=== PATIENT | female | born 1960 | race Caucasian/White ===

== ENCOUNTER 2018-06-09 17:30 | Emergency (ER) | payer SELFPAY ==
--- NOTE | 2018-06-09 17:51 | ER Document Report ---
ED Medical Screen (RME) - General Chief Complaint: Dog Bite Stated Complaint: LEFT ARM LACERATION/DOG BITE Time Seen by Provider: 06/09/18 17:46 Notes: Patient is a 57 year old female that presents to the emergency department for chief complaint of dog bite to the left arm and right thumb. Patient states that she was trying to separate 2 dogs that were fighting, and ended up being bit in her left forearm, left hand, and right thumb. This occurred within the hour of arriving to the emergency department. Does not know last time she had tetanus vaccination. Both dogs are known to the family and her family dogs, and up-to-date with rabies vaccinations.. ROS: Other than noted above, the 12 point review of systems was reviewed with the patient and were negative, all pertinent findings are included in the HPI. PHYSICAL EXAMINATION: Vital signs reviewed. GENERAL: Well-appearing, well-nourished and in no acute distress. HEAD: Atraumatic, normocephalic. EYES: Pupils equal round extraocular movements intact, conjunctiva are normal. ENT: Nares patent NECK: Normal range of motion CV: Heart regular rate and rhythm LUNGS: No respiratory distress Musculoskeletal: No apparent tendon injury on my exam, patient does have a deep wound to the left forearm, as well as several smaller puncture wounds, she has abrasions to the left hand, and the distal two thirds of her right thumbnail has been removed. There is ecchymosis and bruising and pain with flexion of the right thumb. NEUROLOGICAL: Normal speech PSYCH: Normal mood, normal affect. MDM: Patient seen and examined for rapid initial assessment. Vital signs reviewed. A comprehensive ED assessment and evaluation of the patient, analysis of test results and completion of the medical decision making process will be conducted by additional ED providers. *Note is created using voice recognition software and may contain spelling, syntax or grammatical errors. TRAVEL OUTSIDE OF THE [place] IN LAST 30 DAYS: No - Related Data Allergies/Adverse Reactions: cephalexin [From Keflex] Allergy (Verified 06/09/18 17:37) Physical Exam - Vital signs Vitals: Temp Pulse Resp BP Pulse Ox 97.9 F 95 18 159/99 H 94 06/09/18 17:41 06/09/18 17:41 06/09/18 17:41 06/09/18 17:41 06/09/18 17:41 Course - Vital Signs Vital signs: Temp Pulse Resp BP Pulse Ox 97.9 F 95 18 159/99 H 94 06/09/18 17:41 06/09/18 17:41 06/09/18 17:41 06/09/18 17:41 06/09/18 17:41
[2018-06-09] MEDS ORDERED: LIDOCAINE 1% INJ-PF (10 MG/ML) 30 ML SDV INJ ONE (17:52)
[2018-06-09] MEDS ORDERED: DIPH/PERTUSS(ACELL)/TETANUS VAC/PF 0.5 ML SYR (>=10YO) IM ONE (17:52)
[2018-06-09] MEDS ORDERED: NAPROXEN 250 MG TABLET PO ONE (17:53)
--- NOTE | 2018-06-09 18:28 | RADIOLOGY REPORT (SQ) ---
EXAM DESCRIPTION: FOREARM LEFT COMPLETED DATE/TIME: 06/09/2018 6:14 pm REASON FOR STUDY: dog bite to forearm COMPARISON: None. NUMBER OF VIEWS: Two views. TECHNIQUE: Two radiographic images acquired of the left forearm, including elbow and wrist in at [address] one projection. LIMITATIONS: None. FINDINGS: MINERALIZATION: Normal. BONES: No acute fracture. No worrisome bone lesions. SOFT TISSUES: Laceration mid forearm. OTHER: No other significant finding. IMPRESSION: Laceration. No osseous abnormality. TECHNICAL DOCUMENTATION: JOB ID: [id number] [employer]- All Rights Reserved Reading location - IP/workstation name: [email or web address]
--- NOTE | 2018-06-09 18:29 | RADIOLOGY REPORT (SQ) ---
EXAM DESCRIPTION: HAND RIGHT 3 VIEWS COMPLETED DATE/TIME: 06/09/2018 6:14 pm REASON FOR STUDY: dog bite to thumb COMPARISON: None. EXAM PARAMETERS: NUMBER OF VIEWS: Three views. TECHNIQUE: AP, lateral and oblique radiographic images acquired of the right hand. LIMITATIONS: None. FINDINGS: MINERALIZATION: Normal. BONES: No acute fracture or dislocation. No worrisome bone lesions. JOINTS: No effusions. SOFT TISSUES: No soft tissue swelling. No foreign body. OTHER: No other significant finding. IMPRESSION: NEGATIVE STUDY OF THE RIGHT HAND. NO RADIOGRAPHIC EVIDENCE OF ACUTE INJURY. TECHNICAL DOCUMENTATION: JOB ID: [id number] [employer]- All Rights Reserved Reading location - IP/workstation name: [email or web address]
--- NOTE | 2018-06-09 18:39 | ER Document Report ---
ED Animal Bite - General Chief Complaint: Dog Bite Stated Complaint: LEFT ARM LACERATION/DOG BITE Time Seen by Provider: 06/09/18 18:39 Mode of Arrival: Ambulatory Information source: Patient Notes: HISTORY OF PRESENT ILLNESS: Patient is a 57-year-old female with no significant past medical history who presents with dog bite to the left forearm as well as multiple other injuries after the patient attempted to "break my dogs up from fighting." She reports both animals or pets and have been fully vaccinated. She is unsure of her last tetanus shot. Location: Right hand, left forearm Onset: Sudden prior to arrival Provocation: Movement Quality: Burning Radiation: None Severity: Mild Timing: Constant Associated symptoms: No fevers or chills, no numbness/tingling of the extremities, no weakness of the extremities REVIEW OF SYSTEMS: CONSTITUTIONAL : Denies fever or chills, no sweats. Denies recent illness. EENT: Denies eye, ear, throat, or mouth pain or symptoms. Denies nasal or sinus congestion. CARDIOVASCULAR: Denies chest pain. RESPIRATORY: Denies cough, cold, or chest congestion. Denies shortness of breath, difficulty breathing, or wheezing. GASTROINTESTINAL: Denies abdominal pain. Denies nausea, vomiting, or diarrhea. Denies constipation. GENITOURINARY: Denies difficulty urinating, painful urination, burning, frequency, or blood in urine. Denies vaginal bleeding, abnormal or irregular periods. MUSCULOSKELETAL: Positive for dog bites to the right hand and left forearm. Denies neck or back pain or joint pain or swelling. SKIN: Denies rash or skin lesions. HEMATOLOGIC : Denies easy bruising or bleeding. LYMPHATIC: Denies swollen, enlarged glands. NEUROLOGICAL: Denies altered mental status or loss of consciousness. Denies headache. Denies weakness or paralysis or loss of use of either side. Denies problems with gait or speech. Denies sensory or motor loss. PSYCHIATRIC: Denies anxiety or stress or depression. All other systems reviewed and negative. PHYSICAL EXAMINATION: GENERAL: Well-appearing, well-nourished and in no acute distress. HEAD: Atraumatic, normocephalic. No scalp deformity, depression, or crepitance. EYES: Pupils are 3 mm and equal/round/reactive to light, extraocular movements intact, sclera anicteric, conjunctiva are normal. ENT: Nares patent bilaterally, oropharynx clear without exudates or palatal petechia. Moist mucous membranes. No tonsil hypertrophy. NECK: Normal range of motion, supple without lymphadenopathy. LUNGS: Breath sounds present, equal, and clear to auscultation bilaterally. No wheezes, rales, or rhonchi. HEART: Regular rate and rhythm without murmurs, rubs, or gallops. 2+ peripheral pulses. Normal capillary refill. ABDOMEN: Soft, nontender, nondistended. Normoactive bowel sounds. No guarding, no rebound. No masses appreciated. BACK: Normal contour, no midline tenderness. Rectal exam deferred. PELVC: Deferred. EXTREMITIES: Multiple abrasions and puncture wounds to the right hand as well as the right second finger with a traumatically absent right second fingernail, bleeding is controlled. 4-5 cm linear laceration to the proximal left forearm on the ulnar side, bleeding controlled, no visible foreign bodies, small amount of subcutaneous fat protruding from the defect. Normal range of motion, no pitting or edema. No cyanosis. NEUROLOGICAL: No focal neurological deficits. Moves all extremities spontaneously and on command. PSYCH: Normal mood, normal affect. No suicidal thoughts/ideations. No homocidal thoughts/ideations. No hallucinations. SKIN: Warm, dry, normal turgor, no rashes or lesions noted. ASSESSMENT AND PLAN: This patient is a 57-year-old female who presents with dog bite to the right hand and left forearm. Patient is right-hand dominant. 1. Will will be given tetanus booster and oral doxycycline given her allergy to Keflex. 2. Will irrigate wounds and clean/dress, will place 2 to 3 sutures to the left forearm laceration given size to loosely approximate the edges and still allow for drainage. TRAVEL OUTSIDE OF THE [place] IN LAST 30 DAYS: No - Related Data Allergies/Adverse Reactions: cephalexin [From Keflex] Allergy (Verified 06/09/18 17:37) Past Medical History - General Information source: Patient - Social History Smoking Status: Never Smoker Chew tobacco use (# tins/day): No Frequency of alcohol use: None Drug Abuse: None Lives with: Family Family History: Reviewed & Not Pertinent Patient has suicidal ideation: No Patient has homicidal ideation: No - Past Medical History Cardiac Medical History: Reports: None Pulmonary Medical History: Reports: None EENT Medical History: Reports: None Neurological Medical History: Reports: None Endocrine Medical History: Reports: None Renal/ Medical History: Reports: None. Denies: Hx Peritoneal Dialysis Malignancy Medical History: Reports: None GI Medical History: Reports: None Musculoskeletal Medical History: Reports None Skin Medical History: Reports None Psychiatric Medical History: Reports: None Traumatic Medical History: Reports: None Infectious Medical History: Reports: None Past Surgical History: Reports: Hx Abdominal Surgery - hernia repair - Immunizations Immunizations up to date: Yes Hx Diphtheria, Pertussis, Tetanus Vaccination: Yes History of Influenza Vaccine for 01/2017 - 06/2017 Season: Yes Physical Exam - Vital signs Vitals: Temp Pulse Resp BP Pulse Ox 97.9 F 95 18 159/99 H 94 06/09/18 17:41 06/09/18 17:41 06/09/18 17:41 06/09/18 17:41 06/09/18 17:41 Course - Re-evaluation Re-evalutation: 06/09/18 22:37 Patient has had two 4-0 Prolene horizontal mattress sutures to loosely approximate the left forearm laceration, please see procedure note for details. Patient will be discharged home with return precautions and follow-up. Patient voices both understanding and agreement with the plan. - Vital Signs Vital signs: Temp Pulse Resp BP Pulse Ox 97.9 F 95 18 159/99 H 94 06/09/18 17:41 06/09/18 17:41 06/09/18 17:41 06/09/18 17:41 06/09/18 17:41 - Diagnostic Test Radiology reviewed: Image reviewed, Reports reviewed Procedures - Laceration/Wound Repair Left Medial Arm Time completed: 22:27 Wound length (cm): 5 Wound's Depth, Shape: Superficial, Linear Laceration pre-procedure: Betadine prep applied, Shur-Clens applied Anesthetic type: 1% Lidocaine Volume Anesthetic (mLs): 5 Wound explored: Clean, No foreign body removed Irrigated w/ Saline (mLs): 250 Wound Repaired With: Sutures Suture Size/Type: 4:0, Prolene Number of Sutures: 2 Post-procedure wound care: Sterile dressing applied Post-procedure NV exam normal: Yes Complications: No Discharge - Discharge Clinical Impression: Dog bite of arm Qualifiers: Encounter type: initial encounter Laterality: left Qualified Code(s): S41.152A - Open bite of left upper arm, initial encounter; W54.0XXA - Bitten by dog, initial encounter Condition: Good Disposition: HOME, SELF-CARE Instructions: Animal Bites ([facility]), Family Physicians / Practices Additional Instructions: You have been evaluated in the Emergency Department for a dog bite that was loosely sewn together to allow for drainage but still help facilitate wound healing. While here, you had x-rays that were normal and it is now safe to be discharged home. Please follow-up with your primary physician as instructed in 7-10 days to have the area rechecked and have the stitches removed. Return to the Emergency Department if you experience high fevers, swelling of the arm, drainage from your wound, or any other concerning symptoms. Prescriptions: Diclofenac Sodium 75 mg PO BID #30 tablet. Doxycycline Hyclate 100 mg PO BID #20 capsule Print Language: Pashto
[2018-06-09] MEDS ORDERED: HYDROCODONE/ACETAMINOPHEN 5-325 MG TABLET PO ONE (19:15)
[2018-06-09] MEDS ORDERED: DOXYCYCLINE HYCLATE 100 MG TABLET PO ONE (19:15)
[2018-06-09 22:52] VITALS: BP 138/74
== END 2018-06-09 22:52 | disposition home or self-care (01) ==
LOC: ER 17:30
PROC: 0HQEXZZ Repair Left Lower Arm Skin, External Approach (ICD-10-PCS; principal; 2018-06-09)
DX: S41.152A Open bite of left upper arm, initial encounter (principal); M79.642 Pain in left hand; X58.XXXA Exposure to other specified factors, initial encounter
CPT/HCPCS: 99283; 90471; 73090; 73130; 90715; 12002; J3490

== ENCOUNTER 2018-06-23 13:11 | Emergency (ER) | payer OTHER ==
[2018-06-23 14:32] VITALS: BP 145/92
--- NOTE | 2018-06-23 14:32 | ER Document Report ---
ED Suture/Wound Recheck - General Chief Complaint: Suture Removal Stated Complaint: SUTURE REMOVAL Time Seen by Provider: 06/23/18 14:30 Primary Care Provider: Wound Care [Provider Group] - Follow up as needed Mode of Arrival: Ambulatory Information source: Patient Notes: 57-year-old female presented to ED for suture removal from her left arm. She states that her dog bit her in the laceration was sutured and she has taken her antibiotics as instructed. There is no redness drainage or inflammation to the site. There is a lumpy feeling to the site but it is not fluctuant. Patient is in no acute distress at this time. She does have 2 sutures left in her arm that will need to be removed. Order was put in for suture removal bacitracin and dressing. Patient will be discharged home when sutures are removed. TRAVEL OUTSIDE OF THE [place] IN LAST 30 DAYS: No - HPI Previous ED treatment: Laceration repair Antibiotics given previously: Prescription Quality of pain: Achy Severity: Mild Pain Level: 1 Symptoms since procedure: Pain Exacerbated by: Movement Relieved by: Denies - Related Data Allergies/Adverse Reactions: cephalexin [From Keflex] Allergy (Verified 06/23/18 13:20) Past Medical History - General Information source: Patient - Social History Smoking Status: Never Smoker Frequency of alcohol use: None Drug Abuse: None Lives with: Family Family History: Reviewed & Not Pertinent Patient has suicidal ideation: No Patient has homicidal ideation: No - Past Medical History Cardiac Medical History: Reports: None Pulmonary Medical History: Reports: None EENT Medical History: Reports: None Neurological Medical History: Reports: None Endocrine Medical History: Reports: None Renal/ Medical History: Reports: None Malignancy Medical History: Reports: None GI Medical History: Reports: None Musculoskeletal Medical History: Reports None Skin Medical History: Reports None Psychiatric Medical History: Reports: None Traumatic Medical History: Reports: None Infectious Medical History: Reports: None Past Surgical History: Reports: Hx Abdominal Surgery - hernia repair - Immunizations Immunizations up to date: Yes Hx Diphtheria, Pertussis, Tetanus Vaccination: Yes Review of Systems - Review of Systems Constitutional: No symptoms reported EENT: No symptoms reported Cardiovascular: No symptoms reported Respiratory: No symptoms reported Gastrointestinal: No symptoms reported Genitourinary: No symptoms reported Female Genitourinary: No symptoms reported Musculoskeletal: No symptoms reported Skin: Other Hematologic/Lymphatic: No symptoms reported Neurological/Psychological: No symptoms reported Physical Exam - Vital signs Vitals: Temp Pulse Resp BP Pulse Ox 97.5 F 56 L 18 145/92 H 100 06/23/18 14:30 06/23/18 14:30 06/23/18 14:30 06/23/18 14:30 06/23/18 14:30 Interpretation: Normal - General General appearance: Appears well, Alert - HEENT Head: Normocephalic, Atraumatic Eyes: Normal Pupils: PERRL - Respiratory Respiratory status: No respiratory distress Chest status: Nontender Breath sounds: Normal Chest palpation: Normal - Cardiovascular Rhythm: Regular Heart sounds: Normal auscultation Murmur: No - Abdominal Inspection: Normal Distension: No distension Bowel sounds: Normal Tenderness: Nontender Organomegaly: No organomegaly - Back Back: Normal, Nontender - Extremities General upper extremity: Normal inspection, Nontender, Normal color, Normal ROM, Normal temperature General lower extremity: Normal inspection, Nontender, Normal color, Normal ROM, Normal temperature, Normal weight bearing. No: Garrison's sign - Neurological Neuro grossly intact: Yes Cognition: Normal Orientation: AAOx4 Vahid Coma Scale Eye Opening: Spontaneous Vahid Coma Scale Verbal: Oriented Vahid Coma Scale Motor: Obeys Commands Vahid Coma Scale Total: 15 Speech: Normal Motor strength normal: LUE, RUE, LLE, RLE Sensory: Normal - Psychological Associated symptoms: Normal affect, Normal mood - Skin Skin Temperature: Warm Skin Moisture: Dry Skin Color: Normal Skin irregularity: Laceration - Laceration to left forearm well approximated healing with no redness or inflammation noted. There is a scab the part of the laceration. There is a lumpy feeling to the medial side of the wound but there is no fluctuant areas no signs of infection or inflammation. Patient will be discharged home. Course - Vital Signs Vital signs: Temp Pulse Resp BP Pulse Ox 97.5 F 56 L 18 145/92 H 100 06/23/18 14:30 06/23/18 14:30 06/23/18 14:30 06/23/18 14:30 06/23/18 14:30 Discharge - Discharge Clinical Impression: Visit for suture removal Condition: Stable Disposition: HOME, SELF-CARE Instructions: Family Physicians / Practices Additional Instructions: Soap Cleansing Gently wash the wound daily using a mild soap (like Ivory, Phisoderm, Neutrogena). Use warm water, rubbing gently until all debris, ooze, and crusting have been washed from the wound. Allow to dry briefly (about 10 minutes) after cleaning. Repeat this cleansing at least three times a day for the first two days and then once or twice a day. Antibiotic Ointment Protection Your wounds are such that dressing them is not practical or optional. After cleansing, you should apply a thin coating of antibiotic ointment (Bacitracin, not Neosporin) to the wounds at least three times daily. This lessens infection risk, and may decrease the amount of scarring. Use a q-tip or dull butter knife, not your finger, to apply this ointment. Any debris or ooze which builds up in the ointment should be gently rubbed off with a sterile gauze pad. Harder crusting may need to be gently scrubbed off with a clean wash cloth with soap and warm water, perhaps applying a warm, wet wash cloth to the wound for ten minutes first. Development of redness, severe itching, or blistering may mean allergy to the ointment. See the doctor. FOLLOW-UP CARE: If you have been referred to a physician for follow-up care, call the physicians office for an appointment as you were instructed or within the next two days. If you experience worsening or a significant change in your symptoms, notify the physician immediately or return to the Emergency Department at any time for re-evaluation. Forms: Elevated Blood Pressure Referrals: Wound Care [Provider Group] - Follow up as needed
== END 2018-06-23 15:01 | disposition home or self-care (01) ==
LOC: ER 13:11
DX: S51.852D Open bite of left forearm, subsequent encounter (principal); W54.0XXD Bitten by dog, subsequent encounter; Z88.1 Allergy status to other antibiotic agents